=== PATIENT | female | born 1980 | race Asian ===

== ENCOUNTER 2020-07-18 21:50 | Inpatient (IN) | payer BC ==
[~2020-07-18] VITALS: Ht 154.9 cm; Wt 60.9 kg
--- NOTE | 2020-07-18 21:35 | NUR ---
Pt arrived on unit via wheelchair escorted by staff and . Pt reports SROM at 1999 this evening with contractions every 10 mins starting the same time and reports normal movement. EFM and toco monitors started. Vital signs WNL. SVE by this RN 2-/-2 with positive amnio-trace. Information reviewed with Dr. Barr. FHR tracing reviewed. Orders for labor admission received.
[2020-07-18 22:00] VITALS: BP 121/78; PULSE 79; TEMP 97.9
[2020-07-18 22:47] LABS: BASO % 0.3 % (0.0-2.0); EOS # 0.1 (0.0-0.7); EOS % 0.5 % (0-4.0); GRAN # 9.4 (1.4-6.5); GRAN % 79.9 % (42.2-75.2); HEMOGLOBIN 12.9 g/dl (12.5-16.0); LYMPH # 1.4 (1.2-3.4); LYMPH % 11.6 % (20.0-51.0); MEAN CELL VOLUME 90 fl (80.0-100.0); MEAN CORPUSCULAR HEMOGLOBIN 32 pg (27.0-31.0); MEAN CORPUSCULAR HGB CONC 35 g/dl (33.0-37.0); MEAN PLATELET VOLUME 10.5 fl (7.4-10.4); MONO # 0.9 (0.1-0.6); MONO % 7.2 % (1.7-9.3); PLATELET COUNT 223 K/mm3 (130-400); REDCELL DISTRIBUTION WIDTH-CV 13.5 % (11.5-14.5)
--- NOTE | 2020-07-18 22:55 | NUR ---
2255- CLAUDIA Diop at the bedside for epidural placement. Pt sitting on the edge of the bed. SPO2 monitor started. Time out completed. Difficult to trace FHR. Attempts to adjust monitor. 230- Single shot given per CLAUDIA Diop. See anesthesia records for details. 2310- Assisted pt back to supine position with left wedge. EFM and toco monitors readjusted.
[2020-07-18 23:15] VITALS: BP 114/58; PULSE 71
[2020-07-18 23:30] VITALS: BP 117/73; PULSE 77
[2020-07-18] MEDS ORDERED: PRENATAL (23:35)
[2020-07-18 23:45] VITALS: BP 103/67; PULSE 77
[2020-07-19] VITALS (28 sets, daily range): BP systolic 93–133; BP diastolic 53–71; PULSE 70–104; TEMP 98–98.9
--- NOTE | 2020-07-19 03:35 | NUR ---
0335- SVE by this RN +3. 0340- Wilson removed without complications. 0350- Pushing instructions reviewed and pushing started. 0414- Dr. Barr at the bedside. FHR tracing reviewed. Pt set up for delivery. 0430- Dr. Barr remains at the bedside and pushing with pt. 0442- of viable male . Infant placed on mom's abdomen. Cords clamped and cut. Care of the given to nursery RN at the bedside. 0448- of placenta. Pitocin started at 333ml/hr per order and protocol. Fundus firm and lochia WNL per Dr. Barr.
--- NOTE | 2020-07-19 06:30 | NUR ---
small vulvar hematoma noted on exam. soft and non tender to touch. Ice pack placed and will continue to monitor. Will notify physician to exam when she arrives this AM for rounds.
--- NOTE | 2020-07-19 08:00 | NUR ---
Pt able to hold both legs off the bed. Pt ambulates to bathroom with assist. Voids 900cc. Fundus firm, bleeding WNL. Pericare instructions given. New pads and ice pack in place on hematoma. Pt to wheelchair and taken to room 207.
[2020-07-20 02:30] VITALS: BP 98/52; PULSE 68; TEMP 97.4
[2020-07-20 07:30] VITALS: BP 112/74; PULSE 68; TEMP 97.9
[2020-07-20 15:30] VITALS: BP 98/63; PULSE 79; TEMP 97.9
[2020-07-20 21:00] VITALS: BP 117/77; PULSE 77; TEMP 98.7
[2020-07-21 01:11] VITALS: BP 121/76; PULSE 81; TEMP 97.8
[2020-07-21] MEDS ORDERED: MOTRIN 800800 MG/TAB PO (07:52)
[2020-07-21 08:10] VITALS: BP 103/67; PULSE 83; TEMP 98.2
--- NOTE | 2020-07-21 14:16 | NUR ---
1415 FOUND PARENTS ASLEEP WITH BABY IN THE MIDDLE OF THEIR BED. PARENTS HAVE BEEN INSTRUCTED NOT TO SLEEP WITH BABY IN THEIR BED AND ALSO SHOWN THE SAFE SLEEP DVD.
[2020-07-21 16:20] VITALS: BP 124/81; PULSE 81; TEMP 97.9
== END 2020-07-21 17:00 | disposition home or self-care (01) | DRG 807 ==
LOC: LDRO 21:50 → LDR 21:58 → OB 07-19 08:00
PROVIDERS: ADMIT Obstetrics & Gynecology
PROC: 10E0XZZ Delivery of Products of Conception, External Approach (ICD-10-PCS; principal; 2020-07-18)
PROC: 0KQM0ZZ Repair Perineum Muscle, Open Approach (ICD-10-PCS; 2020-07-18)
DX: O99.824 Streptococcus B carrier state complicating childbirth (principal); Z37.0 Single live birth; O70.1 Second degree perineal laceration during delivery; O71.7 Obstetric hematoma of pelvis; Z3A.39 39 weeks gestation of pregnancy
CPT/HCPCS: J2540; J2590; J7120